=== PATIENT | male | born 1995 | race Caucasian/White ===

== ENCOUNTER 2018-10-26 14:12 | Observation (INO) | payer MEDICARE, MEDICAID ==
[2018-10-26] MEDS ORDERED: NS 0.9% 1000 ML* 1,000 ML IV ONE (14:33)
[2018-10-26] MEDS ORDERED: Ondansetron INJ* 2 MG/ML VIAL IV ONE (14:33)
[2018-10-26] MEDS ORDERED: Ketorolac INJ* 30 MG/ML 1 ML VIAL IV PUSH ONE (14:33)
[2018-10-26 14:52] LABS: ABS Basophils 0.1 10^3/ul (0-0.2); ABS Eosinophils 0 10^3/ul (0-0.6); ABS Lymphocytes 1.4 10^3/ul (1.0-4.8); ABS Monocytes 1.1 10^3/ul (0-0.8); ABS Neutrophils 16.5 10^3/ul (1.5-7.7); ABS Nucleated RBC 0 10^3/ul; Eosinophil % 0.2 %; Hematocrit 46 % (42-52); Hemoglobin 15.1 g/dl (14.0-18.0); Lymphocyte % 7.2 %; Mean Corpuscular HGB Conc 33 g/dl (31-36); Mean Corpuscular Hemoglobin 28 pg (27-31); Mean Corpuscular Volume 85 fL (80-94); Mean Platelet Volume 8.5 fL (7.4-10.4); Nucleated Red Blood Cells % 0; Platelet Count 265 10^3/ul (150-450); Red Cell Distribution Width 15 % (10.5-15); White Blood Count 19.2 10^3/ul (3.5-10.8)
[2018-10-26 15:13] LABS: Albumin/Globulin Ratio 1.3 (1-3); BUN/Creatinine Ratio 13.8 (8-20); C Reactive Protein 142.7 mg/L (<8.01); Calcium 9.6 mg/dL (8.6-10.3); EGFR Non-African American 82.4 (>60); Globulin 3.2 g/dL (2-4); Potassium 4.1 mmol/L (3.5-5.0); Total Bilirubin 0.6 mg/dL (0.2-1.0); Total Protein 7.2 g/dL (6.4-8.9)
--- NOTE | 2018-10-26 15:13 | ED ---
Abdominal Pain/Male - HPI Summary HPI Summary: A 23 y/o male brought in by [facility] ambulance presents to [facility] with a chief complaint of sharp abdominal pain since before 10/24/18. He rates his pain as 10 /10. He denies N/V/D and states that he has not had BM complications. Movement or breathing aggravates his pain. He denies a Hx of HTN, DM, asthma or HLD. He denies a FHx of cardiac disease. He claims that he did not eat today but denies a lack of appetite. He denies any abd surgeries. - History of Current Complaint Chief Complaint: EDAbdPain Stated Complaint: ABD PAIN Time Seen by Provider: 10/26/18 14:22 Hx Obtained From: Patient, EMS Onset/Duration: Sudden Onset, Lasting Days, Still Present Timing: Constant Severity Initially: Severe Severity Currently: Moderate Pain Intensity: 10 Pain Scale Used: 0-10 Numeric Location: Discrete At: RLQ, Umbilical Radiates: No Aggravating Factor(s): Movement, Deep Breaths Alleviating Factor(s): Nothing Associated Signs And Symptoms: Negative: Nausea, Vomiting, Diarrhea - Allergies/Home Medications Allergies/Adverse Reactions: Allergies Allergy/AdvReac Type Severity Reaction Status Date / Time No Known Allergies Allergy Verified 10/26/18 14:47 PMH/Surg Hx/FS Hx/Imm Hx Endocrine/Hematology History: Denies: Hx Diabetes, Hx Thyroid Disease Cardiovascular History: Denies: Hx Hypertension Respiratory History: Denies: Hx Asthma, Hx Chronic Obstructive Pulmonary Disease (COPD) GI History: Denies: Hx Ulcer History: Denies: Hx Renal Disease - Surgical History Surgery Procedure, Year, and Place: inpailed by a toy to rt upper leg as a child - Immunization History Immunizations Up to Date: Yes Infectious Disease History: No Infectious Disease History: Denies: Hx Hepatitis, Hx Human Immunodeficiency Virus (HIV), Traveled Outside the [place] in Last 30 Days - Family History Known Family History: Negative: Cardiac Disease - Social History Lives: With Family Alcohol Use: None Substance Use Type: Reports: None Smoking Status (MU): Never Smoked Tobacco Review of Systems Negative: Fever Positive: Abdominal Pain. Negative: Vomiting, Diarrhea, Nausea All Other Systems Reviewed And Are Negative: Yes Physical Exam - Summary Physical Exam Summary: GENERAL: Patient is a well-developed and nourished M who is lying comfortable in the stretcher. Patient is not in any acute respiratory distress. HEAD AND FACE: Normocephalic EYES: PERRLA, EOMI x 2. EARS: Hearing grossly intact. MOUTH: Mucous membranes dry. NECK: Supple, trachea is midline, no adenopathy, no JVD, no carotid bruit. CHEST: Symmetric, no tenderness at palpation LUNGS: Clear to auscultation bilaterally. No wheezing or crackles. CVS: tachycardic, S1 and S2 present, no murmurs or gallops appreciated. ABDOMEN: Very TTP periumbilical, RLQ and McBurney's point. Bowel sounds are normal. No abdominal abnormal pulsations. EXTREMITIES: Full ROM in all major joints, no edema, no cyanosis or clubbing. NEURO: Alert and oriented x 3. No acute neurological deficits. Speech is normal and follows commands. SKIN: Dry and warm Triage Information Reviewed: Yes Vital Signs On Initial Exam: Initial Vitals Temp Pulse Resp BP Pulse Ox 99.8 F 121 20 129/55 95 10/26/18 14:14 10/26/18 14:14 10/26/18 14:14 10/26/18 14:14 10/26/18 14:14 Vital Signs Reviewed: Yes Diagnostics - Vital Signs Vital Signs Temp Pulse Resp BP Pulse Ox 10/26/18 14:19 121 34 129/55 94 10/26/18 14:18 123 32 95 10/26/18 14:14 99.8 F 121 20 129/55 95 - Laboratory Lab Results: Lab Results 10/26/18 Range/Units 14:41 WBC 19.2 H (3.5-10.8) 10^3/ul RBC 5.40 (4.00-5.40) 10^6/ul Hgb 15.1 (14.0-18.0) g/dl Hct 46 (42-52) % MCV 85 (80-94) fL MCH 28 (27-31) pg MCHC 33 (31-36) g/dl RDW 15 (10.5-15) % Plt Count 265 (150-450) 10^3/ul MPV 8.5 (7.4-10.4) fL Neut % (Auto) 86.2 % Lymph % (Auto) 7.2 % [place] % (Auto) 6.0 % Eos % (Auto) 0.2 % Baso % (Auto) 0.4 % Absolute Neuts (auto) 16.5 H (1.5-7.7) 10^3/ul Absolute Lymphs (auto) 1.4 (1.0-4.8) 10^3/ul Absolute Monos (auto) 1.1 H (0-0.8) 10^3/ul Absolute Eos (auto) 0 (0-0.6) 10^3/ul Absolute Basos (auto) 0.1 (0-0.2) 10^3/ul Absolute Nucleated RBC 0 10^3/ul Nucleated RBC % 0 Result Diagrams: 10/28/18 05:27 10/26/18 14:41 Lab Statement: Any lab studies that have been ordered have been reviewed, and results considered in the medical decision making process. - Radiology CXR Radiology Interpretation Completed By: Radiologist Summary of Radiographic Findings: LOW LUNG VOLUMES. NO ACTIVE CARDIOPULMONARY DISEASE. ED physician has reviewed this imaging report. - CT abdomen/pelvis CT Interpretation Completed By: Radiologist Summary of CT Findings: 1. ACUTE APPENDICITIS WITHOUT LOCULATED FLUID COLLECTION TO SUGGEST ABSCESS. 2. HEPATOMEGALY WITH FATTY INFILTRATION OF THE LIVER. ED physician has reviewed this imaging report. Abdominal Pain Fem Course/Dx - Course Course Of Treatment: A 23 y/o male brought in by [facility] ambulance presents to [facility] with a chief complaint of sharp abdominal pain since before 10/24/18. Workup is remarkable with the physical exam revealing that the patient was very TTP in the periumbilical, RLQ and McBurney's point. He was tachycardic and had dry mucous membranes. CXR impression: LOW LUNG VOLUMES. NO ACTIVE CARDIOPULMONARY DISEASE. Abdomen/pelvis CT impression: 1. ACUTE APPENDICITIS WITHOUT LOCULATED FLUID COLLECTION TO SUGGEST ABSCESS. 2. HEPATOMEGALY WITH FATTY INFILTRATION OF THE LIVER. In the ED course the patient was given Marcaine, Nimbex, decadron and fentanyl IV. Lab results obtained. High WBC of 19.2. Dx: acute appendicitis. The patient will be taken to the OR. Case discussed with Dr. Becerril, surgeon. I discussed results with patient. The patient agrees with this plan - Diagnoses Provider Diagnoses: Acute appendicitis - Provider Notifications Discussed Care Of Patient With: April Becerril Time Discussed With Above Provider: 17:45 Instructed by Provider To: MD Will See In ED - After seeing the patient in the ED, the patient will be taken to the OR. Discharge - Sign-Out/Discharge Documenting (check all that apply): Patient Departure - Admit - Discharge Plan Condition: Stable Disposition: ADMITTED TO [facility] - Billing Disposition and Condition Condition: STABLE Disposition: Admitted to [facility] - Attestation Statements Document Initiated by Ana Maríaibe: Yes Documenting Scribe: Delroy Mayes Provider For Whom Padmini is Documenting (Include Credential): Mariluz Talbot MD Scribe Attestation: Delroy Law scribed for Mariluz Talbot MD on 10/29/18 at 1108. Scribe Documentation Reviewed: Yes Provider Attestation: The documentation as recorded by the Delroy reveles accurately reflects the service I personally performed and the decisions made by David goldberg MD Status of Scribe Document: Viewed
[2018-10-26] MEDS ORDERED: Iohexol 300* (CONTRAST) 10 ML SDV IV ONE (17:12)
[2018-10-26] MEDS ORDERED: Piperacillin/Tazobac ADVAN(*) 3.375 GM in NS 0.9% 100 ML* 100 ML IVPB ONE (17:34)
[2018-10-26] MEDS ORDERED: Bupivacaine 0.25% SDV PF* 10 ML VIAL INJ ONE (18:10)
[2018-10-26] MEDS ORDERED: fentaNYL* 50 MCG/ML 5 ML VIAL (250 MCG VIAL) ONE (18:56)
[2018-10-26] MEDS ORDERED: Lidocaine 2% PF * 5 ML VIAL ONE (18:56)
[2018-10-26] MEDS ORDERED: Propofol* 10 MG/ML 20 ML BTL ONE (18:56)
[2018-10-26] MEDS ORDERED: Ketorolac INJ* 30 MG/ML 1 ML VIAL ONE (18:56)
[2018-10-26] MEDS ORDERED: Succinylcholine* 20 MG/ML 10 ML VIAL ONE (18:56)
[2018-10-26] MEDS ORDERED: Cisatracurium* 2 MG/ML MDV 5 ML ONE (18:56)
[2018-10-26] MEDS ORDERED: Dexamethasone IV* 4 MG/ML 1 ML (4 MG) ONE (18:56)
[2018-10-26] MEDS ORDERED: Ondansetron INJ* 2 MG/ML VIAL ONE (18:56)
[2018-10-26] MEDS ORDERED: Midazolam* 1 MG/ML 5 ML VIAL (5 MG) ONE (18:57)
[2018-10-26] MEDS ORDERED: Ondansetron INJ* 2 MG/ML VIAL IV PRN ×2 (19:22→22:13)
[2018-10-26] MEDS ORDERED: Acetaminophen TAB* 325 MG PO PRN (19:22)
[2018-10-26] MEDS ORDERED: Ketorolac INJ* 15 MG/ML 1 ML VIAL IV PUSH PRN (19:22)
[2018-10-26] MEDS ORDERED: Lactated Ringers 1000 ML Bag* 1,000 ML IV SCH (20:00)
--- NOTE | 2018-10-26 20:34 | HP ---
HISTORY AND PHYSICAL: DATE OF ADMISSION: 10/26/18 SERVICE: General Surgery. ATTENDING SURGEON: April Becerril MD ADMISSION DIAGNOSIS: Acute appendicitis. HISTORY OF PRESENT ILLNESS: Mr. Mir is a 23-year-old gentleman with a history of bipolar disorder who presented to the emergency room with 3 days of periumbilical and right lower quadrant abdominal pain. He and his mother said that the pain started around [place] time. He denied having any particular nausea or vomiting. He last ate yesterday evening without any difficulty and he last had something to drink this morning. However given that the pain persisted, he came to the emergency room for evaluation. On evaluation, he was found to have a white blood cell count of 19 [address] he had a CT scan confirming acute appendicitis. Currently, he does complain of heaviness and some abdominal pain. PAST MEDICAL HISTORY: Bipolar disorder. PAST SURGICAL HISTORY: Per the mother, a right leg vascular surgery. No abdominal surgery. MEDICATIONS: 1. Seroquel. 2. [place]. The patient does not know the doses at this time. ALLERGIES: No known drug allergies. SOCIAL HISTORY: No history of smoking. He is not currently working or in school. He lives at home with his mother. REVIEW OF SYSTEMS: Negative except for abdominal pain. PHYSICAL EXAMINATION GENERAL: A young man in no acute distress, lying comfortably in bed. VITAL SIGNS: Temperature is 100.3, heart rate is 108, respiratory rate is 20, O2 sat is 97% O2 on room air, blood pressure is 110/50. HEENT: Normocephalic and atraumatic. RESPIRATORY: Clear to auscultation bilaterally. CARDIOVASCULAR: Regular rate and rhythm. ABDOMEN: Soft, tender in the right lower quadrant. Obese abdomen. EXTREMITIES: No edema. LABORATORY VALUES: White blood cell count 19.2, hemoglobin 15.1, hematocrit is 46, and platelets of 265,000. Sodium is 134, potassium is 4.1, chloride is 104, CO2 of 26, BUN 15, creatinine is 1.09, glucose is 145, AST is 10, ALT is 25 , CRP is 142. RADIOLOGY: CT abdomen and pelvis on 10/26/18 shows acute appendicitis without loculated fluid collection to suggest abscess, hepatomegaly with fatty infiltration of the liver. ASSESSMENT AND PLAN: Mr. Mir is a 23-year-old gentleman with a history of bipolar disorder who presented to the emergency room with 3 days of right lower quadrant abdominal pain, leukocytosis and a CT scan confirming acute appendicitis. I discussed with the patient and his mother at the bedside that the surgical intervention will be a laparoscopic appendectomy. I explained the risks, benefits, and alternatives of the procedure. I explained the risks included but were not limited to bleeding, infection, injury to nearby structures, the possibility for an intraabdominal abscess, and repeat surgeries in the future. The patient and his mother understood these risks and they wished to proceed. The patient has received antibiotics and we plan to admit overnight for observation or possibly longer depending on the outcome of the surgery. TIME SPENT: I spent a total of 30 minutes in coordination of care for this patient and over half of this was [id number]. [id number]/CPS #: [id number] LINDA
[2018-10-26] MEDS ORDERED: Lithium Carbonate TAB* 300 MG PO SCH (21:00)
[2018-10-26] MEDS ORDERED: Neostigmine Methylsulfate* 1 MG/ML 10 ML VIAL (1 mg/ml) ONE (21:10)
[2018-10-26] MEDS ORDERED: Glycopyrrolate IV* 0.2 MG/ML 1 ML VIAL ONE (21:10)
[2018-10-26] MEDS ORDERED: fentaNYL* 50 MCG/ML 2 ML VIAL (100 MCG VIAL) ONE (21:19)
[2018-10-26] MEDS ORDERED: Zosyn per Pharmacy* NOTE FOLLOW UP SCH (22:00)
[2018-10-26] MEDS ORDERED: Naloxone* 0.4 MG/ML 1 ML VIAL IV PRN (22:13)
[2018-10-26] MEDS ORDERED: fentaNYL* 50 MCG/ML 2 ML VIAL (100 MCG VIAL) IV PRN (22:13)
[2018-10-26] MEDS: D5W 1/2 NS 1000 ML BAG* 1,000 ML IV SCH (23:17)
[2018-10-27] MEDS: oxyCODONE/Acetamin 5/325 MG* TAB PO PRN ×3 (00:02→20:29)
[2018-10-27] MEDS: Lithium Carbonate TAB* 300 MG PO SCH ×2 (00:02→21:14)
[2018-10-27] MEDS: ZOSYN 3.375 GM Q8H per EXTENDED INFUSION IVPB SCH ×6 (00:06→15:34)
[2018-10-27] MEDS: QUEtiapine TAB* 300 MG PO SCH ×2 (00:11→21:14)
[2018-10-27 06:56] LABS: Hematocrit 42 % (42-52); Hemoglobin 13.6 g/dl (14.0-18.0); Mean Corpuscular HGB Conc 33 g/dl (31-36); Mean Corpuscular Hemoglobin 28 pg (27-31); Mean Corpuscular Volume 85 fL (80-94); Mean Platelet Volume 8.7 fL (7.4-10.4); Platelet Count 222 10^3/ul (150-450); Red Blood Count 4.88 10^6/ul (4.00-5.40); Red Cell Distribution Width 14 % (10.5-15); White Blood Count 20.9 10^3/ul (3.5-10.8)
[2018-10-27] MEDS: D5W 1/2 NS 1000 ML BAG* 1,000 ML IV SCH ×3 (07:38→23:38)
--- NOTE | 2018-10-27 09:54 | OP ---
OPERATIVE REPORT: DATE OF OPERATION: 10/26/18 - Inpatient, room [facility], [place] [id number] DATE OF : [birth year] SERVICE: General Surgery. ATTENDING SURGEON: April Becerril MD. TEXTILE WORKER: None. ANESTHESIOLOGIST: Dr. Kirkland. ANESTHESIA: General endotracheal anesthesia. PRE-OP DIAGNOSIS: Acute appendicitis. POST-OP DIAGNOSIS: Perforated acute appendicitis. OPERATIVE PROCEDURE: Laparoscopic appendectomy. ESTIMATED BLOOD LOSS: 20 cc. INDICATION FOR SURGERY: Mr. Mir is a 23-year-old gentleman with a history of bipolar disease, who presented to the emergency room with 3 days of right lower quadrant abdominal pain. He had leukocytosis of [address] scan confirming acute appendicitis. Informed consent was obtained for a laparoscopic appendectomy. He understood the risks, benefits and alternatives of the procedure and he wished to proceed. DESCRIPTION OF PROCEDURE: The patient was brought back to the operating room and placed on the operating table in the supine position. Venodyne boots were placed in the bilateral lower extremities for DVT prophylaxis. Antibiotics ( Zosyn) had been administered prior to coming from the emergency room approximately 1 hour before surgery was started. General endotracheal anesthesia was induced and the patient's abdomen was prepped and draped in the normal sterile fashion. Prior to beginning, a time-out was performed verifying the patient's name, MR number and the procedure to be performed. An incision was made in the infraumbilical fold. The skin was divided down to the subcutaneous tissue. The patient is morbidly obese and there was some difficulty eventually finding the fascia and entering to the abdomen. Once this was done a 12-mm trocar was placed into the intraabdominal cavity. Insufflation was obtained to 15 mmHg and upon inspection of the intraabdominal cavity, there was no apparent injury that had been made upon entry. Next, under direct visualization, 2 additional 5 mm trocars were placed, 1 in the left lower quadrant and 1 in the right lower mid abdomen. Extra long trocars were necessary given the large abdominal girth of the patient. Upon visualization of the right lower quadrant, there was clearly fibrinous exudate and a sealed over perforation given that there was small bowel draped over the cecum. Given the patient's habitus the left lower quadrant port was too far for the instrument to reach the right lower quadrant so an additional 5mm trocar was placed in the left mid abdomen, more medially. With great care, the small bowel was bluntly dissected off of the cecum revealing the part of the appendix, which appeared to be gangrenous and perforated at the tip and the tip itself had been curled into and contained perforation. With great care, this was dissected out bluntly. The tip of the appendix was eventually elevated. The base of the appendix was without inflammation. The mesoappendix was divided using a LigaSure and the base of the appendix was stapled off using a EndoGIA 60 mm gold stapler. The appendix was then placed into an EndoCatch bag and removed from the abdomen as specimen. Next, the staple line was carefully examined for hemostasis. It did appear to be hemostatic. Next, inspection of the lower abdomen and pelvis revealed a small amount of turbid fluid that was suctioned out. The staple line was then again examined and after hemostasis was again noted, all the trocars were removed. All the trocars were removed under direct visualization. Desufflation was obtained. The infraumbilical site was closed using an 0-Vicryl suture in a [id number] fashion. All the skin incisions were closed using 4-0 Monocryl sutures. Sterile dressing was placed and the patient's anesthesia was reversed and he was taken to the PACU in stable condition. [id number]/[facility] #: [id number] LINDA
--- NOTE | 2018-10-27 11:38 | PN ---
Progress Note - Progress Note Date of Service: 10/27/18 Note: Surgery Progress Note S: Patient is doing well. His pain is much better. Ambulated to bathroom. Already took in a clear liquid diet. Objective: Vital Signs: Temp Pulse Resp BP Pulse Ox 97.6 F 96 16 120/57 93 10/27/18 11:17 10/27/18 11:17 10/27/18 11:17 10/27/18 11:17 10/27/18 11:17 Laboratory Results - last 24 hr 10/26/18 10/26/18 10/26/18 14:41 14:41 14:41 WBC 19.2 H RBC 5.40 Hgb 15.1 Hct 46 MCV 85 MCH 28 MCHC 33 RDW 15 Plt Count 265 MPV 8.5 Neut % (Auto) 86.2 Lymph % (Auto) 7.2 [place] % (Auto) 6.0 Eos % (Auto) 0.2 Baso % (Auto) 0.4 Absolute Neuts (auto) 16.5 H Absolute Lymphs (auto) 1.4 Absolute Monos (auto) 1.1 H Absolute Eos (auto) 0 Absolute Basos (auto) 0.1 Absolute Nucleated RBC 0 Nucleated RBC % 0 Sodium 137 Potassium 4.1 Chloride 104 Carbon Dioxide 26 Anion Gap 7 BUN 15 Creatinine 1.09 Est GFR ( Amer) 99.7 Est GFR (Non-Af Amer) 82.4 BUN/Creatinine Ratio 13.8 Glucose 145 H Lactic Acid 1.8 Calcium 9.6 Total Bilirubin 0.60 AST 10 L ALT 25 Alkaline Phosphatase 51 C-Reactive Protein 142.70 H Total Protein 7.2 Albumin 4.0 Globulin 3.2 Albumin/Globulin Ratio 1.3 Lipase 26 Influenza A (Rapid) Influenza B (Rapid) 10/26/18 10/27/18 16:27 06:21 WBC 20.9 H RBC 4.88 Hgb 13.6 L Hct 42 MCV 85 MCH 28 MCHC 33 RDW 14 Plt Count 222 MPV 8.7 Neut % (Auto) Lymph % (Auto) [place] % (Auto) Eos % (Auto) Baso % (Auto) Absolute Neuts (auto) Absolute Lymphs (auto) Absolute Monos (auto) Absolute Eos (auto) Absolute Basos (auto) Absolute Nucleated RBC Nucleated RBC % Sodium Potassium Chloride Carbon Dioxide Anion Gap BUN Creatinine Est GFR ( Amer) Est GFR (Non-Af Amer) BUN/Creatinine Ratio Glucose Lactic Acid Calcium Total Bilirubin AST ALT Alkaline Phosphatase C-Reactive Protein Total Protein Albumin Globulin Albumin/Globulin Ratio Lipase Influenza A (Rapid) Negative Influenza B (Rapid) Negative Intake & Output 10/26/18 10/27/18 10/27/18 22:59 06:59 14:59 Intake Total 3500 100 1491 Output Total 0 700 Balance 3500 -600 1491 Weight 300 lb Intake: IV Fluids 3500 1016 D5W 1/2 NS 1016 LR 2400 IVPB 105 ABX - ZOSYN 105 Oral 100 370 Output: Urine 0 700 Other: Estimated Blood Loss MINIMAL Comment Physical exam: Abd: obese, soft, mildly tender in RLQ, incisions c/d/i A/P: 23 M POD 1 from lap appy for perforated appendicitis. Patient doing well but WBC slightly elevated today. - FU CBC in AM, if downtrending will discharge home tomorrow on oral abx - OOB and ambulate - Regular diet
[2018-10-28] MEDS: ZOSYN 3.375 GM Q8H per EXTENDED INFUSION IVPB SCH ×4 (00:08→07:38)
[2018-10-28] MEDS: oxyCODONE/Acetamin 5/325 MG* TAB PO PRN ×2 (03:56→07:46)
[2018-10-28 05:53] LABS: ABS Basophils 0 10^3/ul (0-0.2); ABS Eosinophils 0 10^3/ul (0-0.6); ABS Lymphocytes 1.8 10^3/ul (1.0-4.8); ABS Monocytes 1.2 10^3/ul (0-0.8); ABS Neutrophils 11.6 10^3/ul (1.5-7.7); ABS Nucleated RBC 0 10^3/ul; Eosinophil % 0.2 %; Hematocrit 36 % (42-52); Hemoglobin 11.9 g/dl (14.0-18.0); Lymphocyte % 12.5 %; Mean Corpuscular HGB Conc 33 g/dl (31-36); Mean Corpuscular Hemoglobin 28 pg (27-31); Mean Corpuscular Volume 85 fL (80-94); Mean Platelet Volume 8.7 fL (7.4-10.4); Nucleated Red Blood Cells % 0; Platelet Count 217 10^3/ul (150-450); Red Blood Count 4.28 10^6/ul (4.00-5.40); Red Cell Distribution Width 14 % (10.5-15); White Blood Count 14.7 10^3/ul (3.5-10.8)
[2018-10-28] MEDS: D5W 1/2 NS 1000 ML BAG* 1,000 ML IV SCH (07:37)
[2018-10-28 07:49] VITALS: BP 105/63
--- NOTE | 2018-10-28 09:28 | PN ---
Progress Note - Progress Note Date of Service: 10/28/18 Note: Surgery Progress Note S: Patient is doing well, abdominal pain has improved. He is tolerating a regular diet, ambulating and urinating without difficulty. Objective: Vital Signs - 24 hr 10/27/18 10/27/18 10/27/18 10:33 11:17 15:20 Temperature 97.6 F 98.3 F Pulse Rate 96 100 Respiratory 16 16 20 Rate Blood Pressure 120/57 147/69 (mmHg) O2 Sat by Pulse 93 95 Oximetry 10/27/18 10/27/18 10/27/18 16:00 19:42 20:29 Temperature 98.8 F Pulse Rate 104 Respiratory 18 20 Rate Blood Pressure 107/81 (mmHg) O2 Sat by Pulse 95 95 Oximetry 10/27/18 10/27/18 10/27/18 21:15 23:00 23:41 Temperature 98.4 F Pulse Rate 93 Respiratory 20 20 18 Rate Blood Pressure 110/44 (mmHg) O2 Sat by Pulse 94 Oximetry 10/28/18 10/28/18 10/28/18 03:30 03:56 06:27 Temperature 98.0 F Pulse Rate 102 Respiratory 18 20 Rate Blood Pressure 116/67 (mmHg) O2 Sat by Pulse 95 95 Oximetry 10/28/18 10/28/18 10/28/18 06:28 07:46 07:49 Temperature 98.3 F Pulse Rate 99 Respiratory 20 24 18 Rate Blood Pressure 105/63 (mmHg) O2 Sat by Pulse 94 Oximetry Laboratory Results - last 24 hr 10/27/18 10/28/18 06:21 05:27 WBC 14.7 H RBC 4.28 Hgb 11.9 L Hct 36 L MCV 85 MCH 28 MCHC 33 RDW 14 Plt Count 217 MPV 8.7 Neut % (Auto) 79.2 Lymph % (Auto) 12.5 [place] % (Auto) 7.9 Eos % (Auto) 0.2 Baso % (Auto) 0.2 Absolute Neuts (auto) 11.6 H Absolute Lymphs (auto) 1.8 Absolute Monos (auto) 1.2 H Absolute Eos (auto) 0 Absolute Basos (auto) 0 Absolute Nucleated RBC 0 Nucleated RBC % 0 HIV 1&2 Antibody Nonreactive Intake & Output 10/27/18 10/28/18 10/28/18 22:59 06:59 14:59 Intake Total 1561 1100 1472 Output Total 0 Balance 1561 1100 1472 Intake: IV Fluids 953 990 982 D5W 1/2 NS 953 990 982 IVPB 108 110 110 ABX - ZOSYN 108 110 110 Oral 500 0 380 Output: Urine 0 Other: Estimated Void Large Large # Voids 1 Abd: soft, minimally tender in RLQ, incisions c/d/i A/P: 23 M post op day 2 from [facility] for perforated appendicitis, doing well, WBC downtrending. - DC today on augmentin for 5 days - FU in surgery clinic in 10-14 days.
--- NOTE | 2018-10-28 12:26 | DS ---
DISCHARGE SUMMARY: DATE OF ADMISSION: 10/26/18 DATE OF DISCHARGE: 10/28/18 ADMISSION DIAGNOSIS: Appendicitis. SURGEON: Dr. April Becerril. OPERATIONS: Laparoscopic appendectomy. HOSPITAL COURSE: Mr. Mir is a 23-year-old gentleman with a history of bipolar disease who presented to the emergency room on 10/26/18 with complaints of periumbilical abdominal pain. His white blood cell count was elevated. He underwent a CT scan that showed appendicitis. He went to the operating room on 10/26/18 for a laparoscopic appendectomy. Intraoperative findings were significant for a perforated appendicitis that was gangrenous. It was a contained perforation without free fluid throughout the abdomen and the base of the appendix was not gangrenous. The patient was admitted postoperatively for IV antibiotics and his postoperative course was uneventful. By the day of discharge, he was ambulating without difficulty. He was urinating on his own. He was tolerating regular diet and he was afebrile. His white blood cell count had declined to 14, and he had no complaints. His physical exam on discharge was an abdomen that was obese, soft, minimally tender in the right lower quadrant and incisions were clean, dry and intact. I reviewed the discharge instructions with the patient. The discharge medication is Augmentin 875 mg p.o. b.i.d. x5 days, and he will return to see me in the office in 10 to 14 days for postoperative check. [id number]/CPS #: [id number] MTDD
== END 2018-10-28 11:30 | disposition home or self-care (01) ==
LOC: ED 14:12 → OR 19:41 → SSU 23:18
PROVIDERS: ADMIT Surgery; ATTEND Surgery
DX: K37 Unspecified appendicitis (principal); R10.9 Unspecified abdominal pain; F31.9 Bipolar disorder, unspecified
CPT/HCPCS: 36415; 71045; 74177; 80053; 83605; 83690; 85025; 85027; 86140; 86703; 87040; 88304; 90686; 99283; A9270-GY; G0378; J0330; J1100; J1885; J2250; J2405; J2543; J2704; J2710; J3010; J3490; Q9967